=== PATIENT | female | born 1985 | race Caucasian/White ===

== ENCOUNTER 2018-04-24 13:17 | Inpatient (IN) | payer MEDICARE, OTHER ==
[~2018-04-24 13:17] MED LIST: Gadobenate Dimeglumine 529 MG/1 ML (20ML VIAL) ONE
[2018-04-24 15:20] LABS: #Basophils 0.1 thou/uL (0.0-0.2); #Eosinphils 0.3 thou/uL (0.0-0.7); #Lymphocytes 2.7 thou/uL (1.20-3.40); #Monocytes 0.6 thou/uL (0.11-0.59); #Neutrophils 2.1 thou/uL (1.40-6.50); %Eosinophils 5.4 % (0.0-10.0); %Lymphocytes 47.1 % (21.0-51.0); %Neutrophils 36.5 % (42.0-75.0); Hemoglobin 15.5 g/dL (12.0-16.0); Mean Corpuscular HGB CONC 35.5 g/dL (32.0-36.0); Mean Corpuscular Hemoglobin 34.1 pg (27.0-31.0); Mean Corpuscular Volume 96.2 fL (78.0-98.0); Platelet Count 225 thou/uL (130-400); RBC Distribution Width 12.5 % (11.5-14.5); Red Blood Cell (RBC) Count 4.56 mill/uL (4.20-5.40); White Blood Cell (WBC) Count 5.8 thou/uL (4.8-10.8)
[2018-04-24 15:41] LABS: ALT (SGPT) 15 U/L (8-55); AST (SGOT) 16 U/L (5-34); Albumin 4.4 g/dL (3.5-5.0); Alkaline Phosphatase 40 U/L (40-150); Anion Gap 12 mmol/L (10-20); BUN (Urea Nitrogen) 12 mg/dL (7.0-18.7); Bilirubin, Total 0.4 mg/dL (0.2-1.2); Calc. Creatinine Clearance 0 mL/min (70-130); Calcium 9.6 mg/dL (7.8-10.44); Carbon Dioxide 23 mmol/L (22-29); Chloride 109 mmol/L (98-107); Estimated GFR-MDRD Greater than 90; Globulin 2.9 g/dL (2.4-3.5); Glucose 98 mg/dL (70-105); Potassium 4.2 mmol/L (3.5-5.1); Protein, Total 7.3 g/dL (6.0-8.3); Sodium 140 mmol/L (136-145)
[2018-04-24 16:57] LABS: BHCG - Serum Negative (NEGATIVE); Pregs Control Background? CLEAR/WHITE (CLR/WHITE); Pregs Control Bar Appear? YES (CONTROL BAR)
--- NOTE | 2018-04-24 19:23 | MRI ---
MRI LUMBAR SPINE WITH AND WITHOUT CONTRAST: DATE: 04/24/2018 HISTORY: A 32-year-old female with mid and low back pain, weight loss, urinary incontinence, and fever; rule o ut cord compressing spinal tumor; rule out spinal infection. COMPARISON: None. TECHNIQUE: Multiple sequences obtained in axial and sagittal planes, pre and post IV injection of gadolinium-bas ed contrast agent: MultiHance 10 mL. FINDINGS: For the purposes of this report, it will be assumed that there are 5 lumbar-type vertebrae. The vert ebral body heights are maintained. The cauda equina is arranged in a symmetrical, normal distribution throughout the thecal sac. No evidence of bone marrow edema or intraosseous neoplasm. No abnormal enhancement or mass involving the intramedullary, extramedullary/intradural, extradural, intraosseous, or perivertebral spaces. T he conus medullaris terminates at L1. The findings by individual levels are as follows: T12-L1: Normal. L1-L2: Normal. L2-L3: Normal. L3-L4: Normal. L4-L5: Disk desiccation without disk space narrowing. Small focal central disk herniation that inde nts the ventral aspect of the thecal sac. No neural foraminal stenosis. Mild central spinal canal s tenosis. There is enhancement of an annular fissure involving the small focal central disk herniatio n. L5-S1: Mild to moderate disk space narrowing. Diffuse disk desiccation. There is a small to modera te sized central, right paracentral, and right lateral disk extrusion, which posteriorly displaces th e right S1 nerve root and at least contacts and possibly mildly displaces the left S1 nerve root agai nst the left facet complex. There is an annular fissure associated with this. Mild central spinal c anal stenosis. No neural foraminal stenosis. IMPRESSION: 1. Degenerative disk changes at L4-L5 (mild) and L5-S1 (mild to moderate). 2. Central and right paracentral extruded disk herniation at L5-S1, impinging on the right S1 nerve root and possibly impinging on the left S1 nerve root. 3. No evidence of infectious spondylitis or intraspinal neoplasm. THERESA Munoz POS: [facility]
--- NOTE | 2018-04-24 19:30 | MRI ---
MRI CERVICAL SPINE WITH AND WITHOUT CONTRAST: 04/24/2018 HISTORY: A 32-year-old female with cervicalgia, urinary incontinence, and fever. Rule out cord compressing tu mor or infection. TECHNIQUE: Multisequence MRI of the cervical spine obtained in sagittal and axial planes, pre and post IV inject ion of 10 mL of MultiHance Gadolinium-based contrast agent. FINDINGS: There is no Chiari I malformation. The cervical spinal cord is normal in size and signal, with no fr ank extrinsic compression. No syringohydromyelia. There are mild discogenic degenerative changes at all levels from C3-C4 through C7-T1. No destruction of endplates. No abnormal enhancement, mass, a bnormal signal, or any other major pathology involving the intramedullary, extramedullary-intradural, extradural, intraosseous, or perivertebral spaces. Moderate right-sided facet degenerative joint di sease at C7-T1. Mild left facet DJD at C7-T1. The rest of the facet joints are normal. No high gra de neural foraminal stenosis or severe central spinal canal stenosis at any level. IMPRESSION: 1. Mild cervical spondylosis. 2. Otherwise negative. POS: [facility] [place]
[2018-04-24] MEDS ORDERED: Cyclobenzaprine 10 MG TAB PO PRN (20:04)
--- NOTE | 2018-04-24 20:04 | MRI ---
MRI THORACIC SPINE WITH AND WITHOUT CONTRAST: 04/24/2018 HISTORY: A 32-year-old female with mid back pain, a 16 pound weight loss, and fever. Rule out cord compressin g tumor or infection. TECHNIQUE: Multisequence MRI in sagittal and axial planes, pre and post IV injection of 10 mL of MultiHance Gado linium based contrast agent. FINDINGS: There is no major abnormal enhancement or mass involving the intramedullary, extramedullary/intradura l, extradural, intraosseous, or perivertebral spaces, with the exception of small amounts of bone mar row edema, representing modic type 1 changes at the anterior-superior endplates of T10 and T11. Vert ebral body heights are maintained. No syrinx. There are multiple small disk herniations and/or disk -osteophyte complexes that protrude into the anterior aspect of the spinal canal, including: T4-T5: Small right paracentral that abuts the surface of the spinal cord. T5-T6: Right paracentral-lateral that indents the right side of the spinal cord. T6-T7: Tiny right paracentral. T7-T8: Small central and left paracentral that indents the ventral surface of the spinal cord. T8-T9: Small to moderate sized right paracentral that indents the right anterior aspect of the spina l cord. T9-T10: Central and left paracentral very shallow and tiny. No severe central spinal canal stenosis at any level. No neural foraminal stenosis. IMPRESSION: 1. Multilevel mild degenerative disk disease throughout the thoracic spine, with multilevel small di sk herniations and/or disk-osteophyte complexes, many of which indent the spinal cord. 2. No evidence of neoplasm or infectious spondylitis. POS: [facility]
[2018-04-24] MEDS ORDERED: Ondansetron HCl/PF 4 MG/2 ML Vial IVP PRN (20:05)
[2018-04-24] MEDS ORDERED: traMADol HCl 50 MG TAB ONE (22:13)
[2018-04-25 00:22] VITALS: BMI 21.5
[2018-04-25] MEDS: traMADol HCl 50 MG TAB PO PRN ×3 (03:57→21:23)
[2018-04-25 06:02] LABS: Anion Gap 14 mmol/L (10-20); BUN (Urea Nitrogen) 11 mg/dL (7.0-18.7); Calc. Creatinine Clearance 115 mL/min (70-130); Calcium 9.2 mg/dL (7.8-10.44); Carbon Dioxide 19 mmol/L (22-29); Chloride 109 mmol/L (98-107); Estimated GFR-MDRD Greater than 90; Glucose 83 mg/dL (70-105); Potassium 3.5 mmol/L (3.5-5.1); Sodium 138 mmol/L (136-145)
[2018-04-25 06:50] LABS: Band 4 % (5-11); Eosinophils 3 % (0-10); Hemoglobin 14.3 g/dL (12.0-16.0); Lymphocytes 61 % (21-51); MDiff Complete? YES; Mean Corpuscular HGB CONC 34.8 g/dL (32.0-36.0); Mean Corpuscular Hemoglobin 33.7 pg (27.0-31.0); Mean Corpuscular Volume 96.8 fL (78.0-98.0); Mean Platelet Volume 8.2 fL (7.4-10.4); Monocytes 5 % (0-10); Neutrophil 27 % (42-75); Platelet Count 192 thou/uL (130-400); RBC Distribution Width 12.5 % (11.5-14.5); Red Blood Cell (RBC) Count 4.25 mill/uL (4.20-5.40); White Blood Cell (WBC) Count 6.2 thou/uL (4.8-10.8)
--- NOTE | 2018-04-25 06:56 | HP ---
PRIMARY CARE PHYSICIAN: Diya Olson M.D. CODE STATUS: FULL CODE. TIME OF EVALUATION: 7:55 p.m. CHIEF COMPLAINT: Bilateral leg weakness. HISTORY OF PRESENT ILLNESS: This is a 32 years old female patient with a past medical history of back pain for a few years now. She reported that the symptoms have been getting worse, also reported an incident 2 months ago that she had an injury when a tree branch fell, hit her head and back, patient has reported that her symptoms have been gradually worsening, she has been unable to stand up and walk but she was able to before, she also has associated numbness and pain in bilateral legs, mostly on the right lower extremity. She has received previous treatment with [facility] and she has received recent steroid injections, but she has reported that she is not improving. Symptoms are severe, no clear triggers, no alleviating factors. Neurosurgery has been consulted, we will defer to recommendations in the morning. REVIEW OF SYSTEMS: Constitutional: The patient has reported that she has lost about 10 pounds, generalized weakness. Respiratory: No cough, no sputum production, or shortness of breath. Cardiovascular: No chest pain, palpitation or shortness of breath. Gastrointestinal: No nausea, no vomiting, no diarrhea, no abdominal pain. Central nervous system: The patient has no dizziness. Occasional headache, patient reported bilateral lower extremity weakness. Genitourinary: No burning with urination. Extremities: No leg swelling. All other systems were reviewed and were negative except for the findings mentioned above. PAST MEDICAL HISTORY: PTSD, DVI, complex regional pain syndrome from injury in [place]. PAST SURGICAL HISTORY: Bilateral mastectomy given previous history of breast cancer in the family. PSYCHIATRIC HISTORY: PTSD. SOCIAL HISTORY: No alcohol use, no drug use. No smoking history. KNOWN ALLERGIES: BEE VENOM, GLUTEN, LATEX, SULFA. REPORTED MEDICATIONS: Lexapro 20 mg once a day. PHYSICAL EXAMINATION: VITAL SIGNS: On presentation, blood pressure 105/78 with heart rate 96, respiratory rate 20, temperature 97.4, pain 8/10, bilateral lower extremity. GENERAL APPEARANCE: The patient is alert, oriented, no acute distress. HEENT: Eyes: Normal conjunctivae. Moist oral mucosa. Anicteric. NECK: No JVD. RESPIRATORY: Bilateral air entry. No rales, no wheezing. Symmetric expansion. CARDIOVASCULAR: Normal rate, regular rhythm, no murmurs, no gallop, no edema. ABDOMEN: Full, soft, normal bowel sounds. MUSCULOSKELETAL: Baseline range of motion and strength. No tenderness. SKIN: Warm and intact. No pallor, no rash, no redness. NEUROLOGIC: The patient has bilateral lower extremity weakness. She reported that is worse that her baseline. Baseline speech. Cranial nerves seem to be intact. PSYCHIATRIC: The patient is in a good mood, no anxiety, oriented, optimal judgement. LABORATORY DATA: Reviewed. The patient has white count of 5.8, hemoglobin 15.5 , platelet count 225. Chemistry: Sodium 140, potassium 4.2, chloride 109, carbon dioxide 23, anion gap 12, BUN 12, creatinine 0.73, glucose 98, calcium 9.6, total bilirubin 0.4. LFTs are normal. C-reactive protein is normal. test is negative. The patient received an MRI of cervical spine that reported mild cervical spondylosis, otherwise negative. Thoracic spine MRI was done. The patient has multilevel mild degenerative disk disease throughout the thoracic spine with multilevel small disk herniations or disk osteophyte complexes, many of which indent the spinal cord. No evidence of neoplasm or infectious spondylitis. Lumbar spine MRI was done and reported degenerative disk changes at L4-L5, this is mild and L5-S1 mild to moderate, paracentral extruded disk herniation at L5-S1, impinging the right S1 nerve root and possibly impinging on the left S1 nerve root. No evidence of infectious spondylitis or . ASSESSMENT AND PLAN: The patient was placed in the hospital with the following medical problems. 1. New neurological deficit in bilateral lower extremities, Neurosurgery has been consulted, we will follow recommendations, do neuro checks. 2. History of post-traumatic stress disorder, reconcile home medications, it is chronic, the patient seems to be stable at this point. 3. Deep venous thrombosis prophylaxis. 4. chronic severe pain pt moralez reported that she has severe pain, we will adjust pain meds as needed. MTDD
[2018-04-25] MEDS ORDERED: Ascorbic Acid 500 mg Chewable Tablet PO SCH (09:00)
[2018-04-25] MEDS ORDERED: LEVONORGESTREL ETHIN ESTRADIOL PO SCH (09:00)
[2018-04-25] MEDS: Enoxaparin Sodium 40 MG/0.4 ML SYRINGE SC SCH (09:04)
[2018-04-25] MEDS: Acetaminophen 325 MG TAB PO PRN (09:04)
[2018-04-25] MEDS: Escitalopram Oxalate 10 mg Tablet PO SCH (09:04)
[2018-04-25] MEDS: Ondansetron ODT 4 MG TAB SL PRN (14:34)
--- NOTE | 2018-04-26 08:07 | CON ---
DATE OF CONSULTATION: 04/25/2018 TIME OF SERVICE: 0645 hours. HISTORY OF PRESENT ILLNESS: Ms. Estrada is a 32-year-old woman who was admitted to [facility] by the Hospitalist Service for acute lumbar radicular pain and pain control. She has an MRI scan and sent to the emergency department and she reported loss of bowel and bladder control, which reveals a moderate-sized right eccentric lumbar disk herniation at L5 impacting the descending S1 nerve root which is stable to an MRI performed in January. She has been treated by Dr. John with our pain management colleagues with epidural steroid injections x3, which have given her some relief, but acutely yesterday she had significant increase in her pain symptoms and is now presented in difficulty with ambulation, lifting, moving her right lower extremity given secondary to pain. There is no sensory disturbance. Her pain is quite severe, only relieved with lying flat and even then is still somewhat significant. From the neurosurgery perspective, I do believe that she has reached to a point that she is a surgical candidate given her attempts at other treatment in the outpatient setting. I expressed this to her during our discussion. She is in understanding of this. My recommendation would be to continue working on controlling her pain and would also recommend inpatient consultation to pain management to see if they have further recommendations for this purpose. ADDENDUM: I spoke to Ms. Estrada and to her sister by phone conversation. Sister is at the bedside at the hospital at this time. She expresses significant concern about her sister going home given the level of pain described and the fact that she has been unable to ride a car or to reach the bathroom or hold given the great difficulty she has with ambulation. Initially , was reported to be that she had loss of bowel or bladder control; however, what is appears to be is when she does have the urge to go to the bathroom because of her level of pain, she is unable to get to the restroom and then unfortunately the urge succumbs her. Patient's sister expresses great concern that the patient is not being properly cared for, though I urged to her that we are working on getting her pain better controlled. I still feel the best route of treatment is pain control and then outpatient surgery, though do certainly understand the great difficulty and pain she is experiencing. I did have a discussion with Dr. Messina earlier this morning regarding the case saying that if she is unable to get her pain controlled, we could potentially add her this Tuesday for a lumbar diskectomy though this has not yet been confirmed. I will need to have further discussion as well and will need to continue to work diligently to get her pain under better control. There are still several other methodologies yet to be tried during the hospital stay. I did reiterate the preference of consultation with pain management group to see what other recommendation we may have. UCHE
[2018-04-26] MEDS: traMADol HCl 50 MG TAB PO PRN ×2 (08:46→15:30)
[2018-04-26] MEDS: Escitalopram Oxalate 10 mg Tablet PO SCH (08:46)
[2018-04-26] MEDS: Enoxaparin Sodium 40 MG/0.4 ML SYRINGE SC SCH (08:47)
[2018-04-26] MEDS ORDERED: Naproxen 500 MG TAB PO SCH ×2 (09:05→10:15)
--- NOTE | 2018-04-26 09:10 | PDOC.PN ---
- Subjective Encounter Start Date: 04/26/18 (f/u weakness) Encounter Start Time: 09:08 Subjective: Pt reports difficulty with flexeril - upsets stomach. Decreased PO -: because of this, when ambulating with nausea/worsening numbness -: pain not controlled - Objective Resuscitation Status: Resuscitation Status FULL:Full Resuscitation Vital Signs & Weight: Vital Signs (12 hours) Temp Pulse Resp BP Pulse Ox 04/26/18 07:00 98.1 F 83 16 113/74 98 04/26/18 03:31 97.8 F 73 16 108/72 98 04/25/18 23:24 97.8 F 80 16 90/57 L 98 Weight Weight 129 lb 11.2 oz I&O: 04/25/18 04/26/18 04/27/18 06:59 06:59 06:59 Intake Total 240 Balance 240 Result Diagrams: 04/25/18 04:45 04/25/18 04:45 Phys Exam - Physical Examination Constitutional: NAD Respiratory: no wheezing, no rales, no rhonchi Cardiovascular: RRR, no significant murmur Gastrointestinal: soft, non-tender, no distention, positive bowel sounds Musculoskeletal: no edema Neurological: moves all 4 limbs decrease in temperature and light touch sensation along lateral right leg Psychiatric: normal affect Skin: no rash Dx/Plan (1) Back pain Code(s): M54.9 - DORSALGIA, UNSPECIFIED Status: Chronic (2) Lumbar nerve root impingement Code(s): M54.16 - RADICULOPATHY, LUMBAR REGION Status: Chronic (3) Depression Code(s): F32.9 - MAJOR DEPRESSIVE DISORDER, SINGLE EPISODE, UNSPECIFIED Status : Chronic Qualifiers: Depression Type: unspecified Qualified Code(s): F32.9 - Major depressive disorder, single episode, unspecified - Plan * Sx uncontrolled * d/c flexeril and change to robaxin to see if better GI tolerance. Start with low dose and see how this works, given a combo of medicines will be attempted * start low dose gabapentin at night - titrate as an outpatient * start naproxyn at low dose only if taking po * continue tramadol, add prn norco option * Appreciate Neurosurg following * Continue PT/OT * * dvt prophy - lovenox * gi prophy - not indicated * code status full * * pt not a candidate for discharge to home until ADL's are met - she is unable to ambulate to the commode, has poor PO intake at this time due to nausea and pain. Reviewed plan of care with patient and family, no questions or further needs at end of eval.
[2018-04-26] MEDS: HYDROcodone/Acetaminophen 5/325 mg Tablet PO PRN ×2 (10:40→21:57)
[2018-04-26] MEDS: Ondansetron ODT 4 MG TAB SL PRN (14:04)
[2018-04-26] MEDS ORDERED: Dexamethasone 4 mg/ml Vial SLOW IVP SCH (15:00)
[2018-04-26] MEDS: Naproxen 500 MG TAB PO SCH (20:33)
[2018-04-26] MEDS: Gabapentin 100 MG CAP PO SCH (20:34)
[2018-04-27] MEDS: traMADol HCl 50 MG TAB PO PRN ×3 (03:31→15:36)
--- NOTE | 2018-04-27 05:57 | PDOC.PN ---
- Subjective Encounter Start Date: 04/25/18 Encounter Start Time: 08:00 -: old records requested/rev Pt seen and examined, chart reviewed in its entirety, this is my first visit with this patient follow up for sim pain with sciatica/radiculopathy and L5-S1 Disk protrusion Seen by NSG earlier today, no notes availab,e per report, pt can be discharged when pain controlled for outpatient lumbar diskectomy. No F/C, no N/V/d/C, no CP, no SOB All systems reviewed and neg x as above - Objective Resuscitation Status: Resuscitation Status FULL:Full Resuscitation MAR Reviewed: Yes Vital Signs & Weight: Vital Signs (12 hours) Temp Pulse Resp BP Pulse Ox 04/27/18 04:00 98.1 F 80 16 119/68 97 04/26/18 23:11 98.1 F 90 16 118/75 96 04/26/18 20:00 98.2 F 75 16 04/26/18 19:44 98.2 F 75 16 115/70 98 Weight Weight 129 lb 11.2 oz I&O: 04/25/18 04/26/18 04/27/18 06:59 06:59 06:59 Intake Total 240 Balance 240 Result Diagrams: 04/25/18 04:45 04/25/18 04:45 Radiology Reviewed by me: Yes EKG Reviewed by me: Yes Phys Exam - Physical Examination Constitutional: NAD HEENT: PERRLA, moist MMs, sclera anicteric, oral pharynx no lesions Neck: no nodes, no JVD, full ROM Respiratory: no wheezing, no rales, no rhonchi, clear to auscultation bilateral Cardiovascular: RRR, no significant murmur, no rub Gastrointestinal: soft, non-tender, no distention, positive bowel sounds Musculoskeletal: no edema, pulses present Neurological: non-focal, normal sensation, moves all 4 limbs Lymphatic: no nodes Psychiatric: normal affect, A&O x 3 Skin: no rash, normal turgor, cap refill <2 seconds Dx/Plan - Plan cont current plan of care, plan discussed w/ family, out of bed/ambulate * .
[2018-04-27] MEDS: Ondansetron ODT 4 MG TAB SL PRN (07:21)
[2018-04-27] MEDS: Enoxaparin Sodium 40 MG/0.4 ML SYRINGE SC SCH (08:23)
[2018-04-27] MEDS: Naproxen 500 MG TAB PO SCH ×2 (08:24→20:19)
[2018-04-27] MEDS: Escitalopram Oxalate 10 mg Tablet PO SCH (08:24)
[2018-04-27] MEDS: Acetaminophen 325 MG TAB PO PRN ×2 (09:34→15:36)
--- NOTE | 2018-04-27 11:53 | PDOC.PN ---
- Subjective Encounter Start Date: 04/27/18 Encounter Start Time: 09:40 Pt still with significant pain when ambulating, complains of left lower leg numbness below knee by the time she gets back. Wants to stay and have surgery no f/C, no N/V/D/C except nauseated when pain peaks. All systems reviewed and neg x as above - Objective Resuscitation Status: Resuscitation Status FULL:Full Resuscitation MAR Reviewed: Yes Vital Signs & Weight: Vital Signs (12 hours) Temp Pulse Resp BP BP Pulse Ox 04/27/18 11:30 97.7 F 86 12 113/69 99 04/27/18 07:50 98.4 F 78 12 105/66 99 04/27/18 07:47 98.1 F 80 16 04/27/18 04:00 98.1 F 80 16 119/68 97 Weight Weight 129 lb 11.2 oz I&O: 04/26/18 04/27/18 04/28/18 06:59 06:59 06:59 Intake Total 630 Balance 630 Result Diagrams: 04/25/18 04:45 04/25/18 04:45 Radiology Reviewed by me: Yes Phys Exam - Physical Examination Constitutional: NAD HEENT: PERRLA, moist MMs, sclera anicteric, oral pharynx no lesions Neck: no nodes, no JVD, supple, full ROM Respiratory: no wheezing, no rales, no rhonchi, clear to auscultation bilateral Cardiovascular: RRR, no significant murmur, no rub Gastrointestinal: soft, non-tender, no distention, positive bowel sounds Musculoskeletal: no edema, pulses present Neurological: normal sensation, moves all 4 limbs Lymphatic: no nodes Psychiatric: normal affect, A&O x 3 Skin: no rash, normal turgor, cap refill <2 seconds Dx/Plan - Plan cont current plan of care, plan discussed w/ family, out of bed/ambulate * .
[2018-04-27] MEDS: Methocarbamol 500 MG TAB PO PRN ×2 (16:42→23:28)
[2018-04-27] MEDS: Gabapentin 100 MG CAP PO SCH (20:20)
[2018-04-28] MEDS: Enoxaparin Sodium 40 MG/0.4 ML SYRINGE SC SCH (07:24)
[2018-04-28] MEDS: Naproxen 500 MG TAB PO SCH ×2 (07:24→21:07)
[2018-04-28] MEDS: Escitalopram Oxalate 10 mg Tablet PO SCH (07:24)
[2018-04-28] MEDS: Ondansetron ODT 4 MG TAB SL PRN (08:36)
[2018-04-28] MEDS: Methocarbamol 500 MG TAB PO PRN ×2 (08:36→21:06)
[2018-04-28] MEDS ORDERED: CEFAZOLIN/Water 2 GM/20 ML SYRINGE ONE (09:42)
[2018-04-28] MEDS ORDERED: Midazolam HCl 2 mg/2 ml Vial ONE ×2 (09:43→11:19)
[2018-04-28] MEDS ORDERED: Dexamethasone 20 MG/5 ML VIAL ONE (10:06)
[2018-04-28] MEDS ORDERED: Glycopyrrolate 0.2 MG/ML 5 ML SYRINGE ONE (10:06)
[2018-04-28] MEDS ORDERED: PROPOFOL 200 MG/20 ML VIAL ONE (10:06)
[2018-04-28] MEDS ORDERED: Lidocaine 1% PF 5 ML VIAL ONE (10:06)
[2018-04-28] MEDS ORDERED: Ondansetron HCl/PF 4 MG/2 ML Vial ONE (10:06)
[2018-04-28] MEDS ORDERED: Bupivacaine HCl 0.5%/Epinephrine 1:200,000/PF 30 ml Vial ONE (11:02)
[2018-04-28] MEDS ORDERED: Thrombin 5000 UNITS/5 ML VIAL ONE (11:02)
[2018-04-28] MEDS ORDERED: Fentanyl 100 MCG/2 ML VIAL ONE ×2 (11:19→13:15)
[2018-04-28] MEDS ORDERED: Meperidine HCl/PF 25 MG/ML VIAL ONE (12:55)
[2018-04-28] MEDS ORDERED: Promethazine HCl 25 MG/ML VIAL ONE (13:11)
[2018-04-28] MEDS ORDERED: Ondansetron HCl/PF 4 MG/2 ML Vial IVP PRN (13:46)
[2018-04-28] MEDS ORDERED: Promethazine HCl 25 MG/ML VIAL SLOW IVP PRN (13:46)
[2018-04-28] MEDS ORDERED: Promethazine HCl 25 MG/ML VIAL IM PRN (13:46)
[2018-04-28] MEDS ORDERED: diphenhydrAMINE 50 MG/ML VIAL IVP PRN (14:04)
[2018-04-28] MEDS ORDERED: Acetaminophen/Codeine 30-300mg Tablet PO PRN ×2 (14:04)
[2018-04-28] MEDS ORDERED: Cyclobenzaprine 10 MG TAB PO PRN (14:04)
[2018-04-28] MEDS: traMADol HCl 50 MG TAB PO PRN (17:46)
[2018-04-28] MEDS: CEFAZOLIN/Water 2 GM/20 ML SYRINGE SLOW IVP SCH (21:06)
[2018-04-28] MEDS: Gabapentin 100 MG CAP PO SCH (21:06)
[2018-04-28] MEDS: Acetaminophen 325 MG TAB PO PRN (22:43)
[2018-04-29 03:56] VITALS: TEMP 97.9
[2018-04-29] MEDS: CEFAZOLIN/Water 2 GM/20 ML SYRINGE SLOW IVP SCH (06:12)
[2018-04-29] MEDS: Acetaminophen 325 MG TAB PO PRN ×2 (06:13→06:56)
[2018-04-29 07:45] VITALS: BP 93/53
[2018-04-29] MEDS: Enoxaparin Sodium 40 MG/0.4 ML SYRINGE SC SCH (09:02)
[2018-04-29] MEDS: Escitalopram Oxalate 10 mg Tablet PO SCH (09:02)
[2018-04-29] MEDS: Naproxen 500 MG TAB PO SCH (09:02)
--- NOTE | 2018-04-29 12:37 | EKG ---
Test Reason : Blood Pressure : / mmHG Vent. Rate : 068 BPM Atrial Rate : 068 BPM P-R Int : 160 ms QRS Dur : 086 ms QT Int : 400 ms P-R-T Axes : 005 078 049 degrees QTc Int : 425 ms Normal sinus rhythm Normal ECG Confirmed by ZULMA KELLEY M.D. ([id number]), video news editor ENE LIGHT ([id number]) on 04/29/2018 12:36:58 PM Referred By: Confirmed By:ZULMA KELLEY M.D.
--- NOTE | 2018-04-29 14:59 | PDOC.PN ---
- Subjective Encounter Start Date: 04/28/18 Encounter Start Time: 07:00 PT feeling about the same, to OR this morning for diskectomy no new compalints, denies f/C, no N/V/d/C, pain okay when still All systesm reviewed adn neg x as above - Objective Resuscitation Status: Resuscitation Status FULL:Full Resuscitation MAR Reviewed: Yes Vital Signs & Weight: Vital Signs (12 hours) Temp Pulse Resp BP Pulse Ox 04/29/18 08:58 97.9 F 66 16 99 04/29/18 07:42 97.9 F 66 16 93/53 L 99 04/29/18 03:56 97.9 F 71 16 104/68 98 Weight Weight 129 lb 11.2 oz I&O: 04/28/18 04/29/18 04/30/18 06:59 06:59 06:59 Intake Total 1530 1410 Balance 1530 1410 Result Diagrams: 04/25/18 04:45 04/25/18 04:45 Phys Exam - Physical Examination Constitutional: NAD HEENT: PERRLA, moist MMs, sclera anicteric, oral pharynx no lesions Neck: no nodes, no JVD, supple, full ROM Respiratory: no wheezing, no rales, no rhonchi, clear to auscultation bilateral Cardiovascular: RRR, no significant murmur, no rub Gastrointestinal: soft, non-tender, no distention, positive bowel sounds Musculoskeletal: pulses present Neurological: non-focal, normal sensation, moves all 4 limbs Lymphatic: no nodes Psychiatric: normal affect, A&O x 3 Skin: no rash, normal turgor, cap refill <2 seconds Dx/Plan (1) Back pain Code(s): M54.9 - DORSALGIA, UNSPECIFIED Status: Chronic Qualifiers: Back pain location: low back pain Chronicity: acute Back pain laterality : right Sciatica presence: with sciatica Sciatica laterality: sciatica of right side Qualified Code(s): M54.41 - Lumbago with sciatica, right side (2) Depression Code(s): F32.9 - MAJOR DEPRESSIVE DISORDER, SINGLE EPISODE, UNSPECIFIED Status : Chronic Qualifiers: Depression Type: unspecified Qualified Code(s): F32.9 - Major depressive disorder, single episode, unspecified (3) Lumbar nerve root impingement Code(s): M54.16 - RADICULOPATHY, LUMBAR REGION Status: Chronic - Plan cont current plan of care, out of bed/ambulate * . OR today, dispo per Neurosurgery
--- NOTE | 2018-04-29 15:34 | DIS ---
DATE OF ADMISSION: 04/24/2018 DATE OF DISCHARGE: 04/29/2018 PRIMARY CARE PHYSICIAN: Dr. Diya Olosn. DISCHARGE DIAGNOSES: 1. Acute on chronic back pain. 2. Disk herniation and nerve root impingement with right-sided sciatica and left leg numbness. 3. Depression. 4. Chronic back pain. 5. Post-traumatic stress disorder. 6. Intractable nausea and vomiting. CONSULTATIONS: Neurosurgery, Dr. Messina. PROCEDURES: On 04/28/2018, lumbar diskectomy per Dr. Messina. HISTORY AND PHYSICAL: Ms. Estrada is a 32-year-old female who was admitted from the emergency [facility], [place] for intractable pain when trying to walk. We were subsequently called for admit. She had an MRI done several days before that showed lumbar disk herniation and nerve root impingement . HOSPITAL COURSE: The patient was seen and examined by Dr. Archer on 04/24/2018. The patient was p laced into observation initially. The patient was seen by Neurosurgery who recommended physical therapy teacher apy, muscle relaxers, pain control and ambulation. From 04/24/2018-04/25/2018, the patient remained stable. I took over the case. She was still having significant pain when ambulating and was ultimately seen by the Neurosurgery katiana t afternoon. They recommended continuing the current management and possible diskectomy later in the week if she was unable to tolerate and transition to p.o. and go home and do outpatient followup. From 04/26/2018-04/27/2018, she really had no change. Subsequently, called Dr. Messina's Physician Nikolai Real and the patient was placed on the schedule for the operating room on 04/28/20 18. On 04/28/2018, the patient went to the operating room for diskectomy. Postoperatively, she did well, but was still having significant discomfort and was kept overnight. Today, 04/29/2018, she is feeli ng better, basically has no pain. She has no numbness to her left leg and is able to tolerate weight . She was discharged home in stable condition. PHYSICAL EXAMINATION: The patient was seen and examined on the day of discharge. Discharge plan and disposition was discussed with the patient [id number] at the bedside. DISCHARGE MEDICATIONS: New medications, 1. Cyclobenzaprine 10 mg p.o. t.i.d. p.r.n. prescription of 60 tablets left. 2. Zofran ODT 4 mg sublingual q.6 hours p.r.n. prescription sent. HOME MEDICATIONS: To continue, 1. Lexapro 10 mg p.o. daily. 2. Tizanidine 4 mg p.o. t.i.d. p.r.n. 3. Tramadol 50 mg p.o. q.6 hours p.r.n. FOLLOWUP APPOINTMENTS: 1. Primary care physician within a week. 2. Dr. Messina in 1-2 weeks. DISCHARGE ACTIVITY: Per orthopedic limits. DISCHARGE DIET: Regular. No restrictions. DISCHARGE CONDITION: Stable. DISPOSITION: Being discharge home via private vehicle.
--- NOTE | 2018-05-01 14:38 | OP ---
DATE OF PROCEDURE: 04/24/2018 SURGEON: Terry Messina M.D. DOCUMENT PREPARER MICROFILMING: Nikloai Davis PA-C. INDICATIONS: Pain, numbness and weakness. DIAGNOSIS: Lumbar radiculopathy. PROCEDURE: L5 diskectomy. ANESTHESIA: General. TECHNIQUE: The patient was brought into the operating room and placed under general anesthesia. She was flipped from a supine to a prone position on the operating room table. A linear incision was pl anned over the L5 segment. After prepping and draping and after an appropriate operative pause, the incision was created. Soft tissues were swept away from midline. A self-retaining retractor was missy loraine in the wound for optimal exposure. After confirming the appropriate level with C-arm fluoroscopy , the L5 lamina was carefully removed as was the superior aspect of lamina of S1. The thecal sac was identified and mobilized medially from the right side where a large protuberant disk mass was carefu lly removed. After decompressing the descending S1 nerve roots. The wound was irrigated. Hemostasi s was maintained throughout. The wound was then closed in anatomic layers and a pressure dressing wa s applied. There were no known procedural complications.
== END 2018-04-29 11:19 | disposition home or self-care (01) | DRG 520 ==
LOC: ERS 13:17 → OBSVTOIN 19:40 → INTOOBSV 19:40 → SURG A 19:40
PROVIDERS: ADMIT Hospitalist; ATTEND Hospitalist
PROC: 0SB20ZZ Excision of Lumbar Vertebral Disc, Open Approach (ICD-10-PCS; principal; 2018-04-28)
PROC: 01NR0ZZ Release Sacral Nerve, Open Approach (ICD-10-PCS; 2018-04-28)
DX: M51.16 Intervertebral disc disorders with radiculopathy, lumbar region (principal); F32.9 Major depressive disorder, single episode, unspecified; F43.10 Post-traumatic stress disorder, unspecified; G89.29 Other chronic pain; R11.2 Nausea with vomiting, unspecified; Z91.030 Bee allergy status; Z91.040 Latex allergy status; Z88.2 Allergy status to sulfonamides; Z91.048 Other nonmedicinal substance allergy status; Z79.899 Other long term (current) drug therapy
CPT/HCPCS: 36415; 72156; 72157; 72158; 76001; 80048; 80053; 84703; 85025; 85652; 86140; 93005; A9579; G8978-GP-CK; G8979-GP-CI; G8987-GO-CI; G8988-GO-CI; G8989-GO-CI; J0670; J1100; J1650; J2001; J2175; J2250; J2405; J2550; J2704; J3010; Q0162

== ENCOUNTER 2019-08-22 10:59 | Outpatient (CLI) | payer MEDICARE ==
--- NOTE | 2019-08-22 15:19 | MRI ---
MRI LUMBAR SPINE WITH AND WITHOUT CONTRAST: 08/22/2019 HISTORY: A 34-year-old female with chronic low back pain and left lumbar radiculopathy. COMPARISON: 04/24/2018 TECHNIQUE: Multiple sequences obtained in axial and sagittal planes, pre and post IV injection of gadolinium-bas ed contrast agent: MultiHance 12 mL. FINDINGS: For the purposes of this report it will be assumed that there are five lumbar type vertebrae. Vertebr al body heights are maintained. The cauda equina is arranged in a symmetrical, normal distribution th roughout the thecal sac. No major bone marrow signal abnormality. The conus medullaris terminates at L1. T12-L1: Normal except for right inferior T12 endplate Schmorl's node. L1-L2: Normal. L2-L3: Normal. L3-L4: Minimal disk bulge. Mild bilateral facet DJD. No high grade central or high grade neural jose e inal stenosis. L4-L5: Disk desiccation without significant disk space narrowing. Small to moderate sized central, ri ght paracentral and right lateral disk herniation (with minimal inferior migration of a few millimete rs which technically qualifies this as a small disk extrusion) indents the ventral aspect of the thec al sac, and contacts without significantly displacing, the bilateral L5 nerve roots. Mild central spi nal canal stenosis. No significant neural foraminal stenosis. Posterior midline central enhancement o f the annulus at the small focal disk herniation. No significant interval change. Mild to moderate la teral recess stenosis bilaterally. L5-S1: Right hemilaminotomy defect with enhancing scar tissue at the defect. Interval progression of disk space narrowing, now moderate. Previously there was a central and right paracentral disk extrusi on which was impinging on the right S1 nerve root and possibly impinging on the left S1 nerve root. C urrently the laminotomy has resulted in interval slight widening of the thecal sac. No central spinal canal stenosis. The central and bilateral paracentral disk extrusion remains. This disk extrusion co ntinues to contact the right S1 nerve root but does not compress it to the same degree as before. The right facet complex and the residual disk herniation both contact the right S1 nerve root. There is rim enhancement around the right S1 nerve root, which could be granulation tissue or post surgical sc ar tissue. There is also enhancing post surgical scar tissue in the anterior epidural space. The left paracentral aspect of the disk herniation continues to contact the left S1 nerve root, which appears minimally compressed between the disk herniation and the left facet complex, to a similar degree as before. There is no right neural foraminal stenosis. There is minimal left neural foraminal stenosis. No high grade facet DJD. IMPRESSION: 1. Degenerative disk disease at L4-L5 and greater at L5-S1. The L5-S1 degenerative disk disease has m ildly worsened since 2018. 2. Interval right hemilaminotomy at L5-S1. 3. Enhancing scar tissue around the right S1 nerve root. That right S1 which still contacts the cent ral disk herniation and the right facet complex but does not appear compressed as it did previously. 4. There may still be mild impingement of the contralateral left S1 nerve root between the central di sk herniation and the left facet complex, unchanged. 5. Small central disk herniation at L4-L5, unchanged. 6. All the rest of the levels are essentially normal. THERESA Munoz POS: PHILIPPE
== END 2019-08-22 11:00 | disposition home or self-care (01) ==
LOC: BICMRI 10:59
PROVIDERS: ATTEND Neurological Surgery
DX: M51.17 Intervertebral disc disorders with radiculopathy, lumbosacral region (principal); M51.16 Intervertebral disc disorders with radiculopathy, lumbar region; L90.5 Scar conditions and fibrosis of skin; Z98.890 Other specified postprocedural states
CPT/HCPCS: 72158

== ENCOUNTER 2020-05-14 13:49 | Outpatient (CLI) | payer MEDICARE ==
--- NOTE | 2020-05-14 15:16 | MRI ---
EXAM: Lumbar spine MRI without contrast. HISTORY: Lumbar radiculopathy, cauda equina, low back pain, trouble walking COMPARISON: 08/22/2019 FINDINGS: Multiplanar, multisequence MRI examination of the lumbar spine is performed. The conus medullaris region appears unremarkable. No evidence for abnormal marrow edema signal. Evidence for postoperative changes at L5-S1. T12-L1 disc level: Unremarkable. L1-L2 disc level: Unremarkable. L2-L3 disc level: Unremarkable. L3-L4 disc level: Mild disc bulging with very mild lateral recess narrowing without significant jose e inal stenosis. L4-L5 disc level: Central protrusion with moderate central canal and lateral recess stenosis and mild bilateral foraminal stenosis with associated central annular fissure. L5-S1 disc level: Left central protrusion with mild left lateral recess stenosis and mild depression of the left S1 nerve root with associated annular fissure with mild foraminal stenosis. IMPRESSION: Postoperative changes at L5-S1. Protrusion changes at L4-L5 and L5-S1 as above. Little overall change from prior exam.
== END 2020-05-14 13:50 | disposition home or self-care (01) ==
LOC: MRI 13:49
PROVIDERS: ATTEND Specialist
DX: G83.4 Cauda equina syndrome (principal); M51.16 Intervertebral disc disorders with radiculopathy, lumbar region; M51.27 Other intervertebral disc displacement, lumbosacral region; Z98.890 Other specified postprocedural states
CPT/HCPCS: 72148

== ENCOUNTER 2020-07-09 13:11 | Outpatient (CLI) | payer MEDICARE ==
--- NOTE | 2020-07-09 14:27 | MRI ---
MR the lumbar spine with and without contrast INDICATION: 34-year-old female with lumbar radiculopathy, low back pain and bilateral leg weakness an d numbness; severe incontinence; history of lumbar surgery in 2018 COMPARISON: MR the lumbar spine with and without contrast dated August 22, 2019. TECHNIQUE: Multiplanar multisequence MR images were obtained of lumbar spine with and without IV cont rast. Contrast: 13 cc of MultiHance. FINDINGS: Bone marrow: There is stable postprocedural change of a right hemilaminotomy at L5-S1. The bone marro w signal intensity otherwise is within normal limits. Distal spinal cord and conus: Normal. Conus is seen to terminate at the L1 level. Visualized retroperitoneum and paraspinal soft tissues: Normal. No lymphadenopathy demonstrated. Vertebral levels: L5-S1: There is a broad-based disc bulge with a superimposed central disc protrusion causing moderate narrowing of the lateral recess bilaterally. There is encroachment on the S1 nerve roots within the lateral recess without definite impingement. There is mild neural foraminal narrowing which is st able. L4-5: There is a broad-based disc bulge with a small superimposed central disc protrusion that is sta ble to the prior exam. There is no appreciable central canal or neural foraminal narrowing. L3-4: There is a mild broad-based bulge without appreciable central canal or neural foraminal narrowi ng L2-3: No appreciable central canal or neuroforaminal narrowing. L1-L2: No appreciable central canal or neuroforaminal narrowing. T12-L1: No appreciable central canal or neuroforaminal narrowing. Postcontrast series: The degree of perineural fibrosis seen affecting the right S1 nerve root on the prior examination has significantly reduced in prominence. No appreciable significant epidural fibrotic change is grossly evident. There is no abnormal enhancement seen within the thecal sac. IMPRESSION: 1. Stable broad-based disc bulge at L5-S1 with moderate lateral recess narrowing bilaterally. The bro ad-based disc bulge and superimposed central disc protrusion does encroach upon the S1 nerve roots without definite impingement. Mild bilateral neural foraminal narrowing at L5-S1 is stable. 2. Mild perineural fibrotic change previously seen involving the right S1 nerve root is no longer jannie ntified.
[2020-07-09] MEDS ORDERED: Magnevist 469MG/ML 20 ML VIAL ONE (16:27)
== END 2020-07-09 13:12 | disposition home or self-care (01) ==
LOC: BICMRI 13:11
PROVIDERS: ATTEND Neurological Surgery
DX: M54.16 Radiculopathy, lumbar region (principal); M51.9 Unspecified thoracic, thoracolumbar and lumbosacral intervertebral disc disorder; M48.07 Spinal stenosis, lumbosacral region
CPT/HCPCS: 72158; A9579

== ENCOUNTER 2020-07-17 14:26 | Outpatient (CLI) | payer MEDICARE ==
--- NOTE | 2020-07-17 15:26 | RAD ---
EXAM: XR Lumbar Spine Min 4 View PROVIDED CLINICAL HISTORY: Radiculopathy of lumbar region. History of laminectomy defect at L4-5 level. Patient seems to have lo w back pain with pain extending down bilateral lower extremities. COMPARISON: None FINDINGS: There is left convex scoliosis of the lumbar spine. 5 nonrib-bearing lumbar-type vertebral bodies are present. Vertebral body heights are within normal limits. Mild narrowing of the L5-S1 intervertebral disc space is present. No fracture or subluxation is seen involving the lumbar spine. There is suggestion of Schmorl's nodes involving the lower thoracic and upper lumbar spine. Minimal wedging of the T12 and L1 vertebral bodies is seen and likely physiologic in origin. IMPRESSION: 1. Degenerative changes at the lumbosacral junction. 2. Mild left convex scoliosis lumbar spine. 3. No fracture or subluxation involving the lumbar spine.
== END 2020-07-17 14:27 | disposition home or self-care (01) ==
LOC: BICRAD 14:26
PROVIDERS: ATTEND Specialist
DX: M54.16 Radiculopathy, lumbar region (principal); M47.817 Spondylosis without myelopathy or radiculopathy, lumbosacral region; M41.9 Scoliosis, unspecified
CPT/HCPCS: 72110

== ENCOUNTER 2021-04-26 08:36 | Emergency (ER) | payer OTHER ==
[2021-04-26] MEDS ORDERED: Morphine 4 MG/ML VIAL ONE ×2 (09:29→11:18)
[2021-04-26 10:21] LABS: BHCG - Serum Negative (NEGATIVE); Pregs Control Background? CLEAR/WHITE (CLR/WHITE); Pregs Control Bar Appear? YES (CONTROL BAR)
== END 2021-04-26 12:08 | disposition home or self-care (01) ==
LOC: ERS 08:36
DX: M54.5 Low back pain (principal); Z79.899 Other long term (current) drug therapy
CPT/HCPCS: 36415; 72131; 84703; 96372; J2270

== ENCOUNTER 2021-06-03 07:16 | Day surgery (SDC) | payer OTHER ==
[2021-06-02 10:07] VITALS: BMI 19.6
[2021-06-03] MEDS ORDERED: Fentanyl 100 MCG/2 ML VIAL ONE ×2 (08:19→12:08)
[2021-06-03] MEDS ORDERED: Phenylephrine 10 MG/ML VIAL ONE (08:20)
[2021-06-03] MEDS ORDERED: HYDROmorphone 2 MG/ML VIAL ONE (08:20)
[2021-06-03] MEDS ORDERED: Midazolam HCl 2 mg/2 ml Vial ONE (09:04)
[2021-06-03] MEDS ORDERED: Bupivacaine PF 0.5% 30 ML VIAL ONE (09:52)
[2021-06-03] MEDS ORDERED: Thrombin 5000 UNITS/5 ML VIAL ONE (09:52)
[2021-06-03] MEDS ORDERED: EPINEPHrine 1 MG/ML AMP ONE (09:52)
[2021-06-03] MEDS ORDERED: PROPOFOL 200 MG/20 ML VIAL ONE (10:29)
[2021-06-03] MEDS ORDERED: Lidocaine 1% PF 5 ML VIAL ONE (10:29)
[2021-06-03] MEDS ORDERED: Glycopyrrolate 0.2 MG/ML 5 ML SYRINGE ONE (10:29)
[2021-06-03] MEDS ORDERED: Rocuronium Bromide 10 MG/ML (10ML VIAL) ONE (10:29)
[2021-06-03] MEDS ORDERED: Ondansetron PF 4 MG/2 ML Vial ONE ×2 (10:29→12:06)
[2021-06-03] MEDS ORDERED: Ketorolac Tromethamine 30 MG/ML VIAL ONE (10:29)
[2021-06-03] MEDS ORDERED: Promethazine HCl 25 MG/ML VIAL ONE (13:43)
== END 2021-06-03 14:30 | disposition home or self-care (01) ==
LOC: SDC 07:16
PROVIDERS: ATTEND Neurological Surgery
PROC: 0ST20ZZ Resection of Lumbar Vertebral Disc, Open Approach (ICD-10-PCS; principal; 2021-06-03)
DX: M51.17 Intervertebral disc disorders with radiculopathy, lumbosacral region (principal); M48.07 Spinal stenosis, lumbosacral region; Z88.2 Allergy status to sulfonamides; Z91.030 Bee allergy status; Z91.040 Latex allergy status; Z91.09 Other allergy status, other than to drugs and biological substances; Z79.52 Long term (current) use of systemic steroids; Z79.899 Other long term (current) drug therapy; Z98.890 Other specified postprocedural states; Z90.10 Acquired absence of unspecified breast and nipple; Z87.820 Personal history of traumatic brain injury
CPT/HCPCS: 76000; J0171; J0690; J1170; J1885; J2250; J2370; J2405; J2550; J2704; J3010; S0020

== ENCOUNTER 2022-07-07 13:23 | Emergency (ER) | payer MEDICARE, OTHER ==
[2022-07-07 13:57] LABS: Bacteria/HPF None Seen HPF (None Seen); Bilirubin Negative (Negative); Blood, Urine 3+ (Negative); Clarity Clear (Clear); Glucose, Urine (Dipstick) Normal (Negative); Ketone, Urine 10 mg/dL (Negative); Leukocyte Negative Leu/uL (Negative); Nitrite Negative (Negative); Protein, Urine (Dipstick) Negative (Neg-Trace); RBC/HPF 0-3 HPF (0-3); Specific Gravity, Urine 1.023 (1.002-1.036); Urobilinogen Normal mg/dL (Less than 2); WBC/HPF 0-3 HPF (0-3); pH, Urine 6.5 (5.0-9.0)
[2022-07-07 13:59] LABS: Pregnancy Test - Urine (BHCG) Negative (Negative); Pregu Control Background? CLEAR/WHITE (CLR/WHITE); Pregu Control Bar Appear? YES (CONTROL BAR); Specific Gravity 1.023 (1.002-1.036)
[2022-07-07] MEDS ORDERED: Acetaminophen 500 MG TAB ONE (14:34)
[2022-07-07 15:07] LABS: #Basophils 0.1 thou/uL (0.0-0.2); #Eosinphils 0.1 thou/uL (0.0-0.7); #Lymphocytes 1.9 thou/uL (1.20-3.40); #Monocytes 0.4 thou/uL (0.11-0.59); #Neutrophils 3.8 thou/uL (1.40-6.50); %Eosinophils 1.4 % (0.0-10.0); %Lymphocytes 30.7 % (21.0-51.0); %Monocytes 6.3 % (0.0-10.0); %Neutrophils 60.7 % (42.0-75.0); Hemoglobin 13.8 g/dL (12.0-16.0); Mean Corpuscular HGB CONC 34.9 g/dL (32.0-36.0); Mean Corpuscular Hemoglobin 34.7 pg (27.0-31.0); Mean Corpuscular Volume 99.6 fL (78.0-98.0); Mean Platelet Volume 8.5 fL (7.4-10.4); Platelet Count 234 thou/uL (130-400); RBC Distribution Width 12.1 % (11.5-14.5); Red Blood Cell (RBC) Count 3.97 mill/uL (4.20-5.40); White Blood Cell (WBC) Count 6.2 thou/uL (4.8-10.8)
[2022-07-07 15:19] LABS: ALT (SGPT) 18 U/L (8-55); AST (SGOT) 20 U/L (5-34); Albumin 4.6 g/dL (3.5-5.0); Alkaline Phosphatase 43 U/L (40-110); Anion Gap 16 mmol/L (10-20); BUN (Urea Nitrogen) 7 mg/dL (7.0-18.7); Bilirubin, Total 0.5 mg/dL (0.2-1.2); CK (CPK) 53 U/L (29-168); Calc. Creatinine Clearance 0 mL/min (70-130); Calcium 9.6 mg/dL (7.8-10.44); Carbon Dioxide 21 mmol/L (22-29); Chloride 108 mmol/L (98-107); Estimated GFR 111; Globulin 2.8 g/dL (2.4-3.5); Glucose 98 mg/dL (70-105); Lipase 38 U/L (8-78); Potassium 3.9 mmol/L (3.5-5.1); Protein, Total 7.4 g/dL (6.0-8.3); Sodium 141 mmol/L (136-145)
== END 2022-07-07 15:53 | disposition home or self-care (01) ==
LOC: ERS 13:23
DX: R10.13 Epigastric pain (principal); L40.50 Arthropathic psoriasis, unspecified
CPT/HCPCS: 36415; 80053; 81003; 81015; 81025; 82550; 83690; 85025; 93005; 94760